=== PATIENT | female | born 1980 | race Caucasian/White ===

== ENCOUNTER 2020-04-28 15:19 | Outpatient (REF) | payer OTHER, SELFPAY | END 2020-04-28 15:20 | disposition home or self-care (01) | LOC: HO.LAB 15:19 | PROVIDERS: Visit Provider Internal Medicine | DX: Z20.822 Contact with and (suspected) exposure to COVID-19 (principal) | CPT/HCPCS: 36415; C9803; U0003; U0005 ==

== ENCOUNTER 2020-07-05 13:14 | Outpatient (REF) | payer OTHER, SELFPAY | END 2020-07-05 13:15 | disposition home or self-care (01) | LOC: HO.LAB 13:14 | PROVIDERS: Visit Provider Internal Medicine | DX: Z20.822 Contact with and (suspected) exposure to COVID-19 (principal) | CPT/HCPCS: C9803; U0003; U0005 ==

== ENCOUNTER 2020-07-19 15:46 | Outpatient (REF) | payer OTHER, SELFPAY | END 2020-07-19 15:47 | disposition home or self-care (01) | LOC: HO.LAB 15:46 | PROVIDERS: Visit Provider Internal Medicine | DX: Z20.822 Contact with and (suspected) exposure to COVID-19 (principal) | CPT/HCPCS: C9803; U0003; U0005 ==

== ENCOUNTER 2021-01-11 08:30 | Emergency (ER) | payer OTHER, SELFPAY ==
[2021-01-11 09:03] VITALS: BP 133/88; PULSE 75; RESP 18; TEMP 36.8; O2SAT 98; BMI 31.5
--- NOTE | 2021-01-11 09:08 | ED.NECK ---
HPI - Neck Pain/Injury General Chief Complaint: Neck Pain/Injury Stated Complaint: neck pain Time Seen by Provider: 01/11/21 09:08 Source: patient Mode of arrival: ambulatory Limitations: no limitations History of Present Illness HPI Narrative: 40 y/o female with history of chronic neck pain due to herniated discs presents to the ER with worsening neck pain for the last 3 days. She any recent trauma or injury. She reports seeing a cementing bulk material operator at [facility] who used to provide injections into her neck with significant improvement. Unfortunately this provider now has solo practice and does not take her insurance. The pain has been causing her not to get a good night's sleep for the last 2 nights. She reports the pain is mostly on the right side and her right upper shoulder. She has intermittent numbness to her right hand which has been going on for years. That is not worsening. She denies any headaches or fevers. She has been taking Tylenol for the pain with minimal relief. She is sensitive to a lot of medications, including her prescribed Neurontin that makes her sleepy so she only has been taking it at nighttime instead of 3 times a day. MD complaint: neck pain Onset (ago): day(s) (3) Place: home Radiation: right lateral Severity: severe Severity scale (1-10): 7 Quality: dull, crushing, aching and spasming Duration: constant Relieving factors: none Exacerbating factors: movement of neck Context: unknown Associated symptoms: none Treatments prior to arrival: none Related Data Previous Rx's Medication Instructions Recorded cyclobenzaprine 5 mg tablet 5 mg PO TID PRN #14 tab 01/11/21 prednisone 20 mg tablet 40 mg PO DAILY #10 tab 01/11/21 Allergies Allergy/AdvReac Type Severity Reaction Status Date / Time Penicillins [PENICILLINS] Allergy Mild NAUSEA Verified 01/11/21 09:06 codeine [CODEINE] Allergy Unknown NAUSEA Verified 01/11/21 09:06 Review of Systems Review of Systems: Constitutional: No Fever, No Chills Eyes: No Eye Pain, No Swelling, No Redness Cardiovascular: No Chest Pain, No SOB Gastrointestinal: No Nausea, No Vomiting Musculoskeletal: + joint pain,+ Myalgias Skin: No Skin Lesions, No rash Neuro: No Weakness, + Numbness, No Dizziness, No Headache Heme/Lymph: No Bruising, No Lymphadenopathy PMFSH Past Medical History Medical History (Updated 01/11/21 @ 09:23 by [place]) No known health problems Social History Social History Advance Directives: No Patient : No Physical Exam Vital Signs: Vital Signs: Last Vital Signs Temp 98.3 F 01/11/21 09:03 Pulse 75 01/11/21 09:03 Resp 18 01/11/21 09:03 BP 133/88 01/11/21 09:03 Pulse Ox 98 01/11/21 09:03 Body Mass Index 31.5 Appearance: Alert. Oriented X3. No acute distress. HEENT: normal external inspection Neck: normal inspection, normal ROM, pain with lateral rotation to the left. right sided soft tissue tenderness laterally, no cervical spinal tenderness. no nuchal rigidity CVS: Normal heart rate and rhythm. Pulses normal. Respiratory: No respiratory distress. Skin: Skin warm and dry. Normal skin color. Normal skin turgor. No rashes. Extremities: atraumatic, normal inspection x4. Neuro: Oriented X 3. No motor deficit. No sensory deficit. Course Course Course Narrative: 40-year-old female presenting with acute on chronic neck pain. She has intermittent numbness of her right hand consistent with some mild cervical radiculopathy but this is chronic. No new injury or trauma. No meningeal signs. She has palpable muscle spasm on the right side of her neck. Will plan to treat with low-dose Flexeril and a course of steroids help decrease any inflammation. She will plan to follow-up with [facility] and ask if there is another cementing bulk material operator to can evaluate her for injections. She is stable for discharge home. Patient agrees with plan. Critical Care Time Critical Care Time Critical Care Time: No Discharge Plan Discharge Clinical Impression: Chronic neck pain Strain of neck muscle Qualifiers: Encounter type: initial encounter Qualified Code(s): S16.1XXA - Strain of muscle, fascia and tendon at neck level, initial encounter Patient Disposition: Home, Self-Care Instructions: Cervical Strain (ED), Chronic Neck Pain (DC) Additional Instructions: No bending, lifting or twisting. Use ice several times per day for 20 minutes at a time for the next 48 hours and then change to heat. Take the prescribed muscle relaxer as directed to help with pain and discomfort. Follow up with your Primary Care Doctor this week - see if they can give you another name of a [employer]ographer for evaluation for injections. If your pain worsens, if you develop new numbness, tingling, weakness, or any other concerning symptoms 911 or come back to the ER right away for evaluation. Recommend calling [facility] for evaluation - they have multiple locations. [phone] [place] location Prescriptions: New prednisone 20 mg tablet 40 mg PO DAILY Qty: 10 RF: 0 cyclobenzaprine 5 mg tablet 5 mg PO TID PRN (Reason: muscle spasm) Qty: 14 RF: 0 Stand Alone Forms: Work/School Release Interventions: ED Discharge Assessment Last Done: 01/11/21 09:40 Discharge Date/Time: 01/11/21 09:41
== END 2021-01-11 09:41 | disposition home or self-care (01) ==
PROVIDERS: Emergency Provider Emergency Medicine; PCP Internal Medicine Geriatric Medicine
DX: S16.1XXA Strain of muscle, fascia and tendon at neck level, initial encounter (principal); X58.XXXA Exposure to other specified factors, initial encounter; M54.2 Cervicalgia; Y93.9 Activity, unspecified; Y92.9 Unspecified place or not applicable; Y99.9 Unspecified external cause status
CPT/HCPCS: 99283

== ENCOUNTER 2021-01-25 20:11 | Emergency (ER) | payer OTHER, SELFPAY ==
--- NOTE | 2021-01-25 21:15 | ED_ITS ---
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) Associated symptoms: denies other symptoms Treatments prior to arrival: none Related Data Previous Rx's Medication Instructions Recorded cyclobenzaprine 5 mg tablet 5 mg PO TID PRN #14 tab 01/11/21 prednisone 20 mg tablet 40 mg PO DAILY #10 tab 01/11/21 azithromycin 250 mg tablet See Rx Instructions .ROUTE 01/25/21 .COMPLEX #6 tab Allergies Allergy/AdvReac Type Severity Reaction Status Date / Time Penicillins [PENICILLINS] Allergy Mild NAUSEA Verified 01/11/21 09:06 codeine [CODEINE] Allergy Unknown NAUSEA Verified 01/11/21 09:06 Review of Systems Review of Systems: Constitutional : No Weight loss, No Fever, No Chills, No Night Sweats, No Fatigue, No Malaise ENT/Mouth : Positive sore throat No Hearing loss, No Ear Pain, No Nasal Congestion, No Sinus Pain, No Hoarseness, No Rhinorrhea, No Swallowing Difficulty Eyes: No Eye Pain, No Swelling, No Redness, No Foreign Body, No Discharge, No Vision Changes Cardiovascular : No Chest Pain, No SOB, No Dyspnea on Exertion, No Orthopnea, No Edema, No Palpitations Respiratory : No Cough, No Sputum, No Wheezing, No Smoke Exposure, No Dyspnea Gastrointestinal : No Nausea, No Vomiting, No Diarrhea, No Constipation, No abdominal Pain, No Hematochezia, No Melena Genitourinary : no irregular bleeding, No Dysuria, No Urinary Frequency, No Hematuria, No Urinary Incontinence, No Urgency, No Flank Pain, No Urinary Flow Changes, No Hesitancy Musculoskeletal : No joint pain, No Myalgias, No Joint Swelling Skin : No Skin Lesions, No rash Neuro : No Weakness, No Numbness, No Paresthesias, No Loss of Consciousness, No Dizziness, No Headache Psych : No Anxiety/Panic, No Depression, No SI/HI/AH/VH, No Social Issues, Heme/Lymph: No Bruising, No Bleeding,No Lymphadenopathy Endocrine : No Polyuria, No Polydipsia, No Temperature Intolerance Yes all other systems are reviewed and are negative [facility] Past Medical History Attestation statement: The following information was validated with the patient. Medical History No known health problems Social History Social History Advance Directives: No Physical Exam Vital Signs: Vital Signs: vital signs have been reviewed as normal and appeared to be correct. Blood pressure normal. Heart rate normal. Respiration rate normal. Temperature normal. Oxygen saturation normal. Appearance: Alert. Oriented X3. No acute distress. Head: Normal external exam. Normocephalic. Atraumatic. Eyes: PERRLA. EOMI. Conjunctiva and sclera normal. Eyelids normal. ENT: EAC normal. TM's Normal. Posterior pharynx erythematous bilaterally on tonsils. No exudate is noted. Uvula midline. Moist mucous membranes. No trismus noted. No drooling noted. No muffled voice noted. Not consistent with peritonsillar/pharyngeal/dental abscess. Neck: Normal inspection. Neck supple. FROM. No adenopathy. Thyroid Normal. No meningeal signs. No neck mass noted. CVS: Normal heart rate and rhythm. Heart sound normal. Pulses normal throughout. No murmurs/rales/gallops. Respiratory: No respiratory distress. Painless inspiration. Breath sounds normal. No wheezes/rales/rhonchi noted. Chest nontender. No accessory muscle usage noted or decreased air movement noted. Abdomen: Soft and nontender. Bowel sounds normal in all 4 quadrants. No distention noted. No organomegaly noted. No visible injury noted. Back: Full range of motion noted. No rashes/lesion/induration/fluctuance or signs of infection noted. Skin: Skin warm and dry. Normal skin color. Normal skin turgor. No rashes/lesions/lacerations noted. Extremities: Extremities exhibit normal range of motion. Extremities nontender. Neuro: Oriented X 3. No motor deficit. No sensory deficit. Reflexes normal. Normal steady gait. No focal neuro deficits noted. Vascular: + radial pulses Normal cap refill. No cyanosis noted to upper extremity nails. 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 Will send all rapid strep and a COVID swab. Will DC home with antibiotics for bacterial pharyngitis. We will also call her in 2 hours if positive results. If negative I told her I will not call her. Along with instructions return if any new or worsening symptoms to follow up with primary care provider. Patient understands agrees with this plan. MDM - URI/Sore Throat Medical Records Attestation: I reviewed the patient's medical records. Lab Data Attestation: I reviewed the patient's lab results. Discharge Plan Discharge Clinical Impression: Acute bacterial pharyngitis Patient Disposition: Home, Self-Care Instructions: Pharyngitis (ED) Additional Instructions: Based on your symptoms and history we have sent a COVID-19. Although your RESULT IS PENDING at this time. RESULTS should return within 2-4 hours. At this time you will be contacted with ONLY POSITIVE results. -Please wait until we contact you for your results. At this time you will be okay for discharge. Please plan for self quarantine for up to 14 days. Do not expose yourself to others. You may not go to work. If testing does come back negative you may return to activities as long as you are no longer having any symptoms for at least 3 days. Please continue to follow cold instructions and wash your hands frequently. You may take Tylenol as directed on the bottle for pain or fever. Patient seen in the emergency department on -------- and should be excused from work until negative test results AND until 72 hours without any symptoms AND at least 10 days have passed since symptoms first appeared or since last exposure to COVID-19 positive patient CDC Guidelines for home isolation: - Stay away from others - WEAR A MASK if you are sick AND STAY HOME - Cover your mouth and nose with a tissue when you cough or sneeze. Dispose of tissues in a lined trash can and wash your hands immediately with soap and water for at least 20 seconds. If soap and water are not available, clean hands with alcohol-based hand keyseating machine set up operator that contains at least 60% alcohol. - Clean your hands often with soap and water for at least 20 seconds - Avoid touching your eyes, nose and mouth with unwashed hands - Do not share dishes, drinking glasses, cups, eating utensils, towels, or bedding with other people in your home. After using these items, wash them thoroughly with soap and water or put in the spanner operator. - Clean high-touch surfaces in your isolation area ( sick room and bathroom) every day; let a caregiver clean and disinfect high-touch surfaces in other areas of the home. Clean the area or item with soap and water or another detergent if it is dirty. Then, use a household disinfectant. - Limit contact with pets and animals: If you must care for a pet, wash your hands before and after interacting with them). Prescriptions: New azithromycin 250 mg tablet See Rx Instructions .ROUTE .COMPLEX Qty: 6 RF: 0 No Action prednisone 20 mg tablet 40 mg PO DAILY Qty: 10 RF: 0 cyclobenzaprine 5 mg tablet 5 mg PO TID PRN (Reason: muscle spasm) Qty: 14 RF: 0 Referrals: Daryl Calvillo MD [Primary Care Provider] - 2 days Stand Alone Forms: Work/School Release Print Language: Sinhala
[2021-01-25 21:16] VITALS: BP 127/84; PULSE 76; RESP 16; TEMP 36.2; O2SAT 99; BMI 31.8
[2021-01-25 21:37] LABS: COVID-19 Test Negative (Negative); Strep A Nucleic Acid Negative (Negative)
== END 2021-01-25 21:54 | disposition home or self-care (01) ==
PROVIDERS: Physician Assistant Medical; Emergency Provider Internal Medicine; PCP Internal Medicine
DX: J02.9 Acute pharyngitis, unspecified (principal); Z20.822 Contact with and (suspected) exposure to COVID-19
CPT/HCPCS: 36415; 87635; 87651; 99283

== ENCOUNTER 2021-02-07 12:58 | Outpatient (REF) | payer OTHER, SELFPAY | END 2021-02-07 12:59 | disposition home or self-care (01) | LOC: HO.LAB 12:58 | PROVIDERS: PCP Internal Medicine; Visit Provider Internal Medicine | DX: Z20.822 Contact with and (suspected) exposure to COVID-19 (principal) | CPT/HCPCS: C9803; U0003; U0005 ==

== ENCOUNTER 2021-06-06 18:50 | Emergency (ER) | payer OTHER, SELFPAY ==
--- NOTE | 2021-06-06 21:56 | ED_ITS ---
HPI - Asthma General Chief Complaint: Upper Respiratory Symptoms Stated Complaint: cold symptoms Time Seen by Provider: 06/06/21 21:26 Source: patient Mode of arrival: ambulatory History of Present Illness HPI Narrative: 41-year-old female with history of asthma presents with complaints of increasing runny nose, sore throat, cough and increased difficulty with breathing with subjective fevers. She is concerned that she may have RSV and has already been tested for COVID as well as influenza. Related Data Previous Rx's Medication Instructions Recorded cyclobenzaprine 5 mg tablet 5 mg PO TID PRN #14 tab 01/11/21 prednisone 20 mg tablet 40 mg PO DAILY #10 tab 01/11/21 azithromycin 250 mg tablet See Rx Instructions .ROUTE 01/25/21 .COMPLEX #6 tab prednisone 50 mg tablet 50 mg PO DAILY 4 Days #4 tab 06/06/21 Allergies Allergy/AdvReac Type Severity Reaction Status Date / Time Penicillins [PENICILLINS] Allergy Mild NAUSEA Verified 01/11/21 09:06 codeine [CODEINE] Allergy Unknown NAUSEA Verified 01/11/21 09:06 Review of Systems Review of Systems: Pertinent positives and negatives as stated in HPI and 10 point review of systems is otherwise negative. PMFSH Past Medical History Source: nursing notes reviewed Medical History Asthma No known health problems Social History Social History Advance Directives: No Advance Directives Information Provided: Yes Physical Exam Vital Signs: Vital Signs: Last Vital Signs Temp 98.7 F 06/06/21 22:07 Pulse 80 06/06/21 22:18 Resp 16 06/06/21 22:18 BP 141/105 H 06/06/21 22:07 Pulse Ox 99 06/06/21 22:07 BMI result Body Mass Index 29.7 VITAL SIGNS: Reviewed. GENERAL: Well developed, well nourished, in no acute distress. HEAD: Normocephalic/atraumatic EYES: PERRLA, EOMI intact EARS: Ext canals without abnormality, TMs non-bulging and non-erythematous NOSE: Nares patent bilateral OROPHARYNX: no oral lesions noted, posterior pharynx clear and non-erythematous without noted tonsillar enlargement/erythema/exudates NECK: Supple, no adenopathy LUNGS: Decreased breath sounds with expiratory wheeze but no rales or rhonchi, no tachypnea CARDIOVASCULAR: Regular rate and rhythm without noted murmurs ABDOMEN: Soft, non-tender, non-distended with bowel sounds. MUSCULOSKELETAL: No tenderness, deformities, or effusions noted on gross inspection. EXTREMITIES: No cyanosis, clubbing or edema. SKIN: Inspection of the skin reveals no rashes NEUROLOGIC: Alert and oriented x 4. Strength and sensation to light touch were grossly intact x 4. Course Course Course Narrative: 41-year-old female with history and clinical presentation most consistent with seasonal allergies in combination with mild asthma exacerbation. Patient will receive albuterol treatment as well as 50 mg of prednisone p.o.. Review of all investigations negative for acute findings. MDM - Asthma Lab Data Labs: Lab Results 06/06/21 Range/Units 21:36 Influenza Type A (PCR) NEGATIVE (Negative) Influenza Type B (PCR) NEGATIVE (Negative) RSV RNA Qual (PCR) NEGATIVE (Negative) SARS-CoV-2 RNA (RT-PCR) NEGATIVE (Negative) Discharge Plan Discharge Clinical Impression: Asthma exacerbation, Seasonal allergies Patient Disposition: Home, Self-Care Instructions: Loratadine (By mouth), Fluticasone (Into the nose), Asthma (ED), Allergic Rhinitis (ED), Postnasal Drip (DC) Additional Instructions: 1. Resume all home medications. 2. Recommend that you start using [id number] Flonase as well as Claritin for seasonal allergy control and increase frequency of albuterol inhaler and complete the course of steroids that you have been prescribed. 3. Follow-up with your primary care provider in the next 2-3 days for re- evaluation. Return to the ER for worsening symptoms. Prescriptions: New prednisone 50 mg tablet 50 mg PO DAILY 4 Days Qty: 4 0RF No Action prednisone 20 mg tablet 40 mg PO DAILY Qty: 10 0RF cyclobenzaprine 5 mg tablet 5 mg PO TID PRN (Reason: muscle spasm) Qty: 14 0RF azithromycin 250 mg tablet See Rx Instructions .ROUTE .COMPLEX Qty: 6 0RF Rx Instructions: take 500 mg today (day 1), then 250 mg for 4 days (days 2-5) Referrals: Daryl Calvillo III, MD [Primary Care Provider] - 2 days
[2021-06-06 22:07] VITALS: BP 141/105; PULSE 84; RESP 17; TEMP 37.1; O2SAT 99; BMI 29.7
[2021-06-06] MEDS: predniSONE 10 MG TABLET 50 MG PO (22:13)
[2021-06-06] MEDS: Albuterol Sulfate (0.083%) 2.5 MG/3 ML VIAL.NEB 5 MG INHALE (22:17)
[2021-06-06 22:18] VITALS: PULSE 80; RESP 16; O2SAT 99
[2021-06-06 22:24] LABS: Influenza A PCR NEGATIVE (Negative); Influenza B PCR NEGATIVE (Negative); Resp Syncy Virus RNA Qual PCR NEGATIVE (Negative); SARS COV2 PCR INHOUSE NEGATIVE (Negative)
== END 2021-06-06 22:49 | disposition home or self-care (01) ==
PROVIDERS: Emergency Provider Student in an Organized Health Care Education/Training Program; PCP Internal Medicine
DX: J45.901 Unspecified asthma with (acute) exacerbation (principal); J30.2 Other seasonal allergic rhinitis; Z20.822 Contact with and (suspected) exposure to COVID-19
CPT/HCPCS: 0241U; 94640; 99283; 99284

== ENCOUNTER 2021-06-11 10:40 | Emergency (ER) | payer OTHER, SELFPAY ==
--- NOTE | 2021-06-11 10:57 | ED.URI ---
HPI - URI/Sore Throat General Chief Complaint: Upper Respiratory Symptoms Stated Complaint: Sore throat/fever Time Seen by Provider: 06/11/21 10:56 Source: patient Mode of arrival: ambulatory Limitations: no limitations History of Present Illness HPI Narrative: 41 y/o female presents to the ER for worsening sore throat and subjective fevers for the last 5-6 days. She states most of her family was also sick this week but is better now. She was seen here on 06/08 and was negative for Flu, COVID and RSV. She states since then her sore throat has gotten worse and she is having pain whenever she swallows. She has been eating less due to this but drinking ok. She is taking tylenol for fevers with improvement in fevers but not sore throat. No cough or SOB. No voice changes. MD elicited complaint: fever and sore throat Onset (ago): day(s) (6) Consistency: constant Severity: severe Description of mucous: clear Exacerbating factors: swallowing Relieving factors: nothing Context: sick contacts Associated symptoms: fever, chills, headache and sore throat Treatments prior to arrival: acetaminophen Related Data Previous Rx's Medication Instructions Recorded cyclobenzaprine 5 mg tablet 5 mg PO TID PRN #14 tab 01/11/21 prednisone 20 mg tablet 40 mg PO DAILY #10 tab 01/11/21 azithromycin 250 mg tablet See Rx Instructions .ROUTE 01/25/21 .COMPLEX #6 tab prednisone 50 mg tablet 50 mg PO DAILY 4 Days #4 tab 06/06/21 cefuroxime axetil 250 mg tablet 250 mg PO Q12H #20 tab 06/11/21 Allergies Allergy/AdvReac Type Severity Reaction Status Date / Time Penicillins [PENICILLINS] Allergy Mild NAUSEA Verified 01/11/21 09:06 codeine [CODEINE] Allergy Unknown NAUSEA Verified 01/11/21 09:06 Review of Systems Review of Systems: Constitutional: + Fever, + Chills ENT/Mouth: + sore throat, No Rhinorrhea, + Swallowing Difficulty Eyes: No Eye Pain, No Swelling, No Redness Cardiovascular: No Chest Pain, No SOB Respiratory: No Cough, No Sputum, No Wheezing, No dyspnea Gastrointestinal: No Nausea, No Vomiting, No Diarrhea, No abdominal Pain Musculoskeletal: No joint pain, No Myalgias Skin: No Skin Lesions, No rash Neuro: No Weakness, No Dizziness, + Headache Heme/Lymph: No Bruising, No Lymphadenopathy PMFSH Past Medical History Medical History Asthma No known health problems Social History Social History Advance Directives: No Advance Directives Information Provided: No Patient : No Physical Exam Vital Signs: Vital Signs: Last Vital Signs Temp 97.7 F 06/11/21 10:59 Pulse 104 H 06/11/21 10:59 Resp 16 06/11/21 10:59 BP 121/84 06/11/21 10:59 Pulse Ox 97 06/11/21 10:59 BMI result Body Mass Index 29.7 Appearance: Alert. Oriented X3. No acute distress. Eyes: Pupils equal, round and reactive to light. ENT: Normal TM's bilaterally. Pharynx with moist mucus membranes. Tonsils are enlarged, erythematous with diffuse exudates bilaterally. uvula midline. Normal voice, handling secretions normally. Neck: Normal inspection. Neck without LAD CVS: Normal heart rate and rhythm. Pulses normal. Respiratory: No respiratory distress. Breath sounds normal. Skin: Skin warm and dry. Normal skin color. Normal skin turgor. No rashes. Extremities: Normal inspection x4 Neuro: Oriented X 3. Grossly normal, nonfocal Course Course Course Narrative: 41 y/o female presenting with 5-6 days of worsening sore throat, subjective fevers. Seen here 06/08 for the same and was negative for Flu, COVID and RSV. Her examination today is consistent with Strep pharyngitis with bilateral tonsillar erythema and exudates. Normal voice and no evidence of abscess. Will start ceftin x10 days given mild PCN allergy. Stable for d/c home. Critical Care Time Critical Care Time Critical Care Time: No Discharge Plan Discharge Clinical Impression: Pharyngitis Patient Disposition: Home, Self-Care Instructions: Pharyngitis (ED) Additional Instructions: Take the prescribed antibiotic as directed - complete the entire course Recommend over the counter Chloraseptic spray or Cepacol lozenges to help numb the back of your throat and help with the pain Gargle with warm salt water several times per day Take Tylenol and Motrin as needed for pain and fevers Rest and drink plenty of fluids If you develop new or worsening symptoms call 911 or come back to the ER for further evaluation. Prescriptions: New cefuroxime axetil 250 mg tablet 250 mg PO Q12H Qty: 20 0RF No Action prednisone 50 mg tablet 50 mg PO DAILY 4 Days Qty: 4 0RF prednisone 20 mg tablet 40 mg PO DAILY Qty: 10 0RF cyclobenzaprine 5 mg tablet 5 mg PO TID PRN (Reason: muscle spasm) Qty: 14 0RF azithromycin 250 mg tablet See Rx Instructions .ROUTE .COMPLEX Qty: 6 0RF Rx Instructions: take 500 mg today (day 1), then 250 mg for 4 days (days 2-5) Referrals: Daryl Calvillo III, MD [Primary Care Provider] - 2 days (follow up pharyngitis) Stand Alone Forms: Work/School Release
[2021-06-11 10:59] VITALS: BP 121/84; PULSE 104; RESP 16; TEMP 36.5; O2SAT 97; BMI 29.7
[2021-06-11] MEDS: dexAMETHasone 2 MG TABLET 10 MG PO (11:15)
[2021-06-11] MEDS: Lidocaine HCl Viscous 2 % 15 ML SOLUTION MUCOUS MEM (11:18)
== END 2021-06-11 11:31 | disposition home or self-care (01) ==
PROVIDERS: Emergency Provider Emergency Medicine; PCP Internal Medicine
DX: J02.9 Acute pharyngitis, unspecified (principal)
CPT/HCPCS: 99283; J8540

== ENCOUNTER 2024-12-25 06:29 | Emergency (ER) | payer OTHER, SELFPAY ==
[2024-12-25 06:34] VITALS: BP 132/93; PULSE 89; RESP 20; TEMP 36.3; O2SAT 99; BMI 31.9
--- NOTE | 2024-12-25 06:57 | ED_ITS ---
HPI - General Adult General Chief complaint: General Medical Stated complaint: neck + shoulder pain Time Seen by Provider: 12/25/24 06:57 Source: patient Mode of arrival: ambulatory Limitations: no limitations History of Present Illness ED Provider: Le Rebolledo PA-C HPI narrative: This is a 44 year old female with a history of herniated disc at level C7-6 that presents for neck pain. She states this was diagnosed years ago via MRI by Dr. Mustapha Riddle. She is having right sided neck pain that radiates to to her right shoulder and stops there and she notes inflammation of her neck. She denies any weakness, tingling or numbness. This has been present for 8 days and it seems to have been irritated by backpack use. She states that she has had pain in this area before but it is worse this time. 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 She has missed two days of school due to the pain. 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 She is alternating Tylenol and ibuprofen for pain with minimal relief. She was seen by urgent care several days ago where they gave her 10 mg tablets of cyclobenzaprine and prednisone. She reports that the muscle relaxer was too sedating. They also referred her to PT at [facility] that she has not started yet. She reports that she has not tried massage therapy but her insurance through work covers it. She states that the treatment from urgent care has not sufficiently alleviated her pain. Related Data Previous Rx's ?Medication ?Instructions ?Recorded cyclobenzaprine 5 mg tablet 5 mg PO TID PRN muscle spa sm #14 01/11/21 tabs prednisone 20 mg tablet 40 mg (2 x 20 mg) PO DAILY # 10 tabs 01/11/21 azithromycin 250 mg tablet See Rx Instructions PO .COM PLEX #6 01/25/21 tabs prednisone 50 mg tablet 50 mg PO DAILY 4 days #4 tab s 06/06/21 cefuroxime axetil 250 mg tablet 250 mg PO Q12H #20 tab s 06/11/21 Allergies Allergy/AdvReac Type Severity Reaction Status Date / Time Penicillins (PENICILLINS) Allergy Mild NAUSEA Verified 12/25/24 06:38 codeine (CODEINE) Allergy Unknown NAUSEA Verified 12/25/24 06:38 Review of Systems Constitutional: Constitutional: Reports as per HPI Eyes: Eyes: Reports as per HPI ENT: Reports as per HPI Cardiovascular: Cardiovascular: Reports as per HPI Respiratory: Respiratory: Reports as per HPI Gastrointestinal: Gastrointestinal: Reports as per HPI Genitourinary: Genitourinary: Reports as per HPI Musculoskeletal: Musculoskeletal: Reports as per HPI Integumentary/Breasts: Skin/Breast: Reports as per HPI Neurologic: Reports as per HPI Psychiatric: Psychiatric: Reports as per HPI Endocrine: Endocrine: Reports as per HPI Hematologic/Lymphatic: Hematologic/Lymphatic: Reports as per HPI Allergic/Immunologic: Allergic/Immunologic: Reports as per HPI [facility] Past Medical History Attestation statement: The following information was validated with the patient. Source: old records reviewed and nursing notes reviewed Medical History Asthma No known health problems Social History Social History Smoked in Last 30 Days: No Use of substances other than those prescribed or required for medical reasons: No Advance Directives: No Advance Directives Information Provided: Yes Do you have a plan to hurt others: No Plan Patient : No Physical Exam ED Vital Signs: Vital Signs - 24 hr 12/25/24 06:34 12/25/24 08:30 Temperature 97.3 F 97.9 F Pulse Rate 89 82 Respiratory Rate 20 18 Blood Pressure 132/93 H 122/88 Pulse Oximetry 99 99 Oxygen Delivery Method Room Air Room Air BMI result Body Mass Index 31.9 Const General: cooperative, no acute distress, alert and awake Nutritional Appearance: well nourished Orientation/consciousness: patient oriented x3 HENMT Head: Yes normal to inspection and Yes atraumatic Ears: hearing grossly normal bilaterally and external ears normal General nose exam: Normal external nose present, no nasal discharge noted and no epistaxis Face and sinus: Yes normal facial exam, No abrasion and No laceration Mouth: no drooling and no muffled voice Eyes General: appearance normal, both eyes and all related structures Periorbital: periorbital findings normal Eyelids: Yes eyelids normal Conjunctivae: conjunctivae normal Pupils: Equal, round and reactive pupils present EOM: EOMs intact bilaterally Neck Neck: Yes full ROM Resp Effort & Inspection: normal respiratory effort and able to speak in complete sentences Auscultation: clear to auscultation bilaterally Cardio Rate: regular rate Rhythm: regular rhythm Back/Spine/Pelvis Cervical Spine: cervical muscular tenderness Neuro General: patient oriented x3 and moves all extremities Cranial nerves: Yes Equal, round and reactive pupils present Cognition (Neuro): normal cognition Extrem General: Yes normal to inspection and Yes full ROM Psych Appearance: grossly normal Mental Status: mental status grossly normal Affect: normal affect Attitude: cooperative Thought process: Normal thought process present Thought content: Normal thought content present Insight: Good insight present (Psych) Medications Administered Discontinued Medications Generic Name Dose Route Start Last Admin Trade Name Dustin PRN Reason Stop Dose Admin Ibuprofen 600 mg 12/25/24 07:34 12/25/24 07:52 Ibuprofen 600 Mg Tablet PO 12/25/24 07:35 600 mg ONCE ONE Administration Medical Decision Making Medical Decision Making [facility] Narrative: Patient is a 44 year old assigned female at with a history of cervical disc herniation presenting to the emergency department today with acute on chronic neck pain. Patient's physical exam was as noted in the physical exam portion of this note and consistent with cervical radiculopathy and cervical muscle spasm. I explained my physical exam findings to the patient. I answered all questions asked by the patient. Patient has already been prescribed the appropriate treatment regimen for these symptoms. I discussed with the patient splitting her 10mg tablets into 5mg as she expressed they were too sedating and following up with a employment training specialist. I stressed the importance of the patient taking her medication as directed (either prescribed or as the over the counter packaging recommends). I stressed the importance of the patient following up with her primary care provider, PT, and a employment training specialist. I stressed the importance of the patient returning to the emergency department immediately if her symptoms were to worsen or if she were to develop any dizziness, shortness of breath, difficulty breathing, chest pain, blurry vision, loss of vision, nausea, vomiting, abdominal pain, fever, chills, back pain, or any other complaints. Patient verbalized agreement and understanding with this treatment plan and discharge. Differential Diagnosis Differential Diagnoses: The differential diagnosis associated with the presentation includes Cervical radiculopathy Neck pain Muscle spasm Acute on chronic neck pain Admission/Observation Consideration of admission/observation: Escalation of care including admission/observation considered Patient would have been admitted to the hospital had her clinical presentation warranted hospital admission. Tests considered The following testing was considered but not selected: I considered obtaining a CT scan of the cervical spine however, the patient's current clinical presentation did not warrant this. Prescription Management I considered prescription management with: Pain Medication (patient already prescribed pain medication) Discharge Plan Discharge Clinical Impression: Cervical radiculopathy Patient Disposition: Home, Self-Care Instructions: Cervical Radiculopathy (ED) Additional Instructions: You may break your cyclobenzaprine in half as you felt the 10mg dose (full tablet) was too much. Follow up with a employment training specialist. Avoid using things that apply pressure on your shoulders like a backpack or bag. IF you are prescribed home medications and/or you are taking over the counter medications at home - it is very important you continue to do so as prescribed / directed unless told otherwise. Follow up with a primary care provider. Return to the emergency department immediately if your symptoms worsen or if you develop any numbness, tingling, dizziness, shortness of breath, difficulty breathing, chest pain, blurry vision, loss of vision, nausea, vomiting, abdominal pain, fever, chills, back pain, or any other complaints. If you do not have a primary care provider - call any of the below numbers to establish and follow up with a primary care provider. [facility] Primary Care ([place]) [phone] [place] [address], [address] [facility] Primary Care ([address] [place]) [phone] [place] [address], [address] [facility], [address] [facility] Primary Care ([address] [place]) [phone] [place] [address], [address] [facility], [address] [facility] Primary Care ([place]) [phone] [place] [address], [address] [facility], [address] [facility] Family Medicine [phone] [address] [facility] [place], [address] Please see the information below about our Patient Portal. If you are not yet enrolled in the [facility] Patient Portal, you will receive an enrollment email invitation following your visit to any [facility] setting. You may also self-enroll in the Patient Portal by visiting our website: [email or web address] The following information is required to access the Patient Portal: - Your [facility] Medical Record Number - Your personal home email address (must match what is in your electronic medical record, Registration staff can assist with this) - Name - Date of Capabilities of the Patient Portal: - Message some providers - View upcoming appointments - Access your health summary, medical history, and visit history - View current conditions and allergies - View procedure and lab results - View your medications, including guidelines, side effects, and precautions - Complete pre-appointment questionnaires requested by your provider - Ready summary reports of your office visits and procedures To access the Patient Portal Mobile [employer], follow these directions: - Search [employer] in the [employer]anie Store or The App[employer] Store - Download the Lanie - Search for [facility] - Enter your login/password Prescriptions: No Action prednisone 50 mg tablet 50 mg PO DAILY 4 Days Qty: 4 0RF prednisone 20 mg tablet 40 mg PO DAILY Qty: 10 0RF cyclobenzaprine 5 mg tablet 5 mg PO TID PRN (Reason: muscle spasm) Qty: 14 0RF azithromycin 250 mg tablet See Rx Instructions .ROUTE .COMPLEX Qty: 6 0RF Rx Instructions: take 500 mg today (day 1), then 250 mg for 4 days (days 2-5) cefuroxime axetil 250 mg tablet 250 mg PO Q12H Qty: 20 0RF Referrals: [facility] [Provider Group, Neurosurgery] Referral Note: Call to establish and follow up with a employment training specialist. Stand Alone Forms: Work/School Release Interventions: ED Discharge Assessment Last Done: 12/25/24 08:30 Discharge Date/Time: 12/25/24 08:30 Print Language: Japanese
--- NOTE | 2024-12-25 07:54 | PC.NURSE ---
patient a&ox3, rr equal/non labored, pt medicated for 7/10 neck pain, call hernadez within reach, plan of care ongoing
[2024-12-25 08:30] VITALS: BP 122/88; PULSE 82; RESP 18; TEMP 36.6; O2SAT 99
== END 2024-12-25 08:30 | disposition home or self-care (01) ==
PROVIDERS: Emergency Provider Emergency Medicine
DX: M54.12 Radiculopathy, cervical region (principal); M54.2 Cervicalgia; M25.511 Pain in right shoulder
CPT/HCPCS: 99283; 99284